=== PATIENT | male | born 1995 | race African-American/Black ===

== ENCOUNTER 2017-09-24 07:43 | Outpatient (CLI) | payer OTHER ==
[2017-09-24] MEDS ORDERED: GADOBUTROL 10 MMOL/10 ML VIAL ONE (08:00)
[2017-09-24] MEDS ORDERED: GADOBUTROL 10 MMOL/10 ML VIAL IVP ONE (08:49)
--- NOTE | 2017-09-24 14:38 | MRI Report ---
Procedure Date: 09/24/2017 Accession Number: [id number] / [id number] Procedure: MRI - Brain W/WO CPT Code: FULL RESULT: EXAM: MRI BRAIN WITHOUT AND WITH CONTRAST EXAM DATE: 09/24/2017 09:17 AM. CLINICAL HISTORY: Patient gives a history of "cyst in middle of head." COMPARISON: At this time, no comparison prior brain imaging is available. TECHNIQUE: Multiplanar, multisequence T1-weighted and fluid-sensitive MR sequences of the brain were performed. Sequences optimized for pituitary evaluation. Other: None. IV Contrast: Without and with 9 mm Gadavist. FINDINGS: Within the pituitary fossa there is an expansile circumscribed rounded T1 hyperintense/T2 hypointense lesion which does not appear to enhance. This measures 11 mm AP, 13 mm transverse and 11 mm craniocaudal. A thin rim of enhancing tissue is seen superior and anterior to this structure, enhancement likely represents pituitary gland tissue that is displaced. The infundibulum is in the midline but is displaced upward. Mild upward convexity of the pituitary anatomy, extending into the suprasellar cistern but not contacting or deforming the optic chiasm. Unremarkable appearance of the adjacent cavernous sinuses. Normal MRI appearance of the brain. No atrophy, hydrocephalus, hemorrhage, stroke or edema. No focal abnormal white matter T2 hyperintense signal changes. No brain shift or abnormal subdural fluid collection. No other evidence for intracranial enhancing or space occupying lesion. Unremarkable appearance of the major dural venous sinuses which opacify with contrast as expected. Maxillary sinus mucosal thickening. Retention cysts inferiorly on the right. IMPRESSION: Expansile nonenhancing pituitary fossa lesion. This likely represents a cyst containing proteinaceous or hemorrhagic material. Tumor with cystic change or internal hemorrhage is a secondary differential consideration. RADIA
== END 2017-09-24 07:44 | disposition home or self-care (01) ==
LOC: DI 07:43
PROVIDERS: ATTEND General Practice
DX: R22.0 Localized swelling, mass and lump, head (principal); R51 Headache; G93.9 Disorder of brain, unspecified
CPT/HCPCS: 70553

== ENCOUNTER 2023-05-13 08:00 | Outpatient (CLI) | payer OTHER ==
[2023-05-13 18:03] LABS: INFLUENZA A- RESP PCR PANEL NOT DETECTED; INFLUENZA B - RESP PCR PANEL NOT DETECTED; RSV- RESP PCR PANEL NOT DETECTED; SARS-CoV-2 -RESP PCR PANEL NOT DETECTED
== END 2023-05-13 23:59 | disposition home or self-care (01) ==
LOC: LAB.N 08:00
PROVIDERS: ATTEND Registered Nurse
DX: R06.09 Other forms of dyspnea (principal); R05.1 Acute cough; R50.9 Fever, unspecified
CPT/HCPCS: 87637

== ENCOUNTER 2023-05-13 12:33 | Outpatient (CLI) | payer OTHER ==
--- NOTE | 2023-05-13 13:39 | XRAY Report ---
PROCEDURE: Chest 2V INDICATIONS: SAMSON TECHNIQUE: 2 views of the chest were acquired. COMPARISON: None. FINDINGS: Surgical changes and devices: None. Lungs and pleura: No pleural effusions or pneumothorax. Lungs are clear. Mediastinum: Mediastinal contours appear normal. Heart size is normal. Bones and chest wall: No suspicious bony lesions. Overlying soft tissues appear unremarkable. IMPRESSION: No acute cardiopulmonary process. Reviewed by: Cesar Caraballo MD on 05/13/2023 1:37 PM PDT Approved by: Cesar Caraballo MD on 05/13/2023 1:37 PM PDT Station ID: [id number]
== END 2023-05-13 12:34 | disposition home or self-care (01) ==
LOC: DI 12:33
PROVIDERS: ATTEND Registered Nurse
DX: R06.09 Other forms of dyspnea (principal); R05.1 Acute cough; R50.9 Fever, unspecified
CPT/HCPCS: 87637